=== PATIENT | male | born 1985 | race Two or more races ===

== ENCOUNTER 2019-01-03 09:27 | Inpatient (IN) | payer OTHER ==
[~2019-01-03] VITALS: Ht 167.6 cm; Wt 71.2 kg
[2019-01-03 09:40] VITALS: BP 125/85
--- NOTE | 2019-01-03 09:40 | NUR ---
ED Nurse Note: BROUGHT BY A CAREGIVER FROM [facility] DUE TO CONSTIPATION, NAUSEA, DIZZINESS SINCE 01/01/19. A/OX4. CLAMMY SKIN WITH HR OF 130s. DENIES SOB AND CP AT THIS TIME. BS 130 AT THE BEDSIDE. Addendum: 01/03/19 at 1001 by [email or web address] ED Nurse Note: BROUGHT BY A CAREGIVER FROM [facility] DUE TO CONSTIPATION, NAUSEA, DIZZINESS SINCE 01/01/19. A/OX4. CLAMMY SKIN WITH HR OF 130s. DENIES SOB AND CP AT THIS TIME. BS 130 AT THE BEDSIDE. PER PT, HE LOST APPETITE FOR PAST TWO MONTHS.
[2019-01-03] MEDS ORDERED: FLUOXETINE HCL20 M2 ORAL (09:56)
[2019-01-03] MEDS ORDERED: LATUDA40 MG PO (09:56)
[2019-01-03] MEDS ORDERED: DIPHENHYDRAMINE25 M1 ORAL (09:56)
--- NOTE | 2019-01-03 10:08 | NUR ---
ED Nurse Note: PT WAS NOT ABLE TO URINATE BY USING URINAL, HR WENT UP TO 150s. ERMED AWARE. HR WENT DOWN TO 130s AFTER PT RESTED ON GURENY. DENIES CP. PT SENT DOWN TO CT AFTER HR IS STABLIZED. RECEIVED VERBAL ORDER FROM YUNG TO INSERT BRITTON CATHETER AFTER PT COME BACK FROM CT.
[2019-01-03 10:20] LABS: BASOPHILS % (AUTO) 0.8 % (0.0-2.0); EOSINOPHILS % (AUTO) 0.1 % (0.0-3.0); HEMATOCRIT 47.2 % (42.0-52.0); HEMOGLOBIN 16.4 G/DL (14.2-18.0); LYMPHOCYTES % (AUTO) 18.7 % (20.0-45.0); MEAN CORPUSCULAR VOLUME 84 FL (80-99); MONOCYTES % (AUTO) 9.6 % (1.0-10.0); NEUTROPHILS % (AUTO) 70.7 % (45.0-75.0); PLATELET COUNT 242 K/UL (150-450); RED CELL DISTRIBUTION WIDTH 11.4 % (11.6-14.8); WHITE BLOOD COUNT 11.3 K/UL (4.8-10.8)
[2019-01-03 10:21] LABS: ANION GAP 22 mmol/L (5-15); BLOOD UREA NITROGEN 25 mg/dL (7-18); CALCIUM 10.2 MG/DL (8.5-10.1); CARBON DIOXIDE 24 MMOL/L (21-32); CHLORIDE 93 MMOL/L (98-107); CREATININE 2.3 MG/DL (0.55-1.30); SODIUM 139 MMOL/L (136-145)
[2019-01-03 10:29] LABS: INR 1.1 (0.9-1.1)
[2019-01-03] MEDS ORDERED: Metoclopramide 10mg/2ml Inj IVP ONE (10:30)
[2019-01-03] MEDS ORDERED: DiphenhydrAMINE 50mg/ml Inj IVP ONE (10:30)
[2019-01-03 10:36] LABS: ALANINE AMINOTRANSFERASE 20 U/L (12-78); ALBUMIN 4.8 G/DL (3.4-5.0); ALBUMIN/GLOBULIN RATIO 1.1 (1.0-2.7); ALKALINE PHOSPHATASE 112 U/L (46-116); ASPARTATE AMINO TRANSFERASE 28 U/L (15-37); BILIRUBIN,TOTAL 1.1 MG/DL (0.2-1.0); CKMB 1.1 NG/ML (0.0-3.6); CREATINE KINASE 292 U/L (26-308)
[2019-01-03 10:44] LABS: BILIRUBIN,DIRECT 0.2 MG/DL (0.0-0.3)
--- NOTE | 2019-01-03 11:04 | Diagnostic Imaging Report ---
INDICATION: 33-year-old male pain TECHNIQUE: Multiple, contiguous axial cuts of the abdomen and pelvis are obtained from the lung bases to the ischial tuberosities. Sagittal and coronal reformatted images are available. One or more of the following dose reduction techniques were used: automated exposure control, adjustment of the mA and/or kV according to patient size, use of iterative reconstruction technique. COMPARISON: None FINDINGS: The lung bases are clear. The liver and spleen are normal in size and free of mass lesions. Status post cholecystectomy. The bile ducts and pancreas are normal. The adrenal gland are unremarkable. The kidneys are normal in size and contour. No stones, lesions or hydronephrosis. Small hiatal hernia. The appendix is unremarkable, as is the rest of the GI tract. Aorta is normal caliber. No adenopathy or extraluminal air. The osseous structures are normal. The right testicle may be within the right inguinal canal. IMPRESSION: 1. Status post cholecystectomy. 2. Right testicle can be within right inguinal canal. 3. Small hiatal hernia. CTDI: 12.77 mGy DLP: 668.63 mGycm
--- NOTE | 2019-01-03 11:07 | NUR ---
ED Nurse Note: BRITTON 14FR INSERTED PER VERBAL ORDER OF ERMD. URINE COLLECTED AND SENT DOWN TO THE LAB.
--- NOTE | 2019-01-03 11:09 | Diagnostic Imaging Report ---
INDICATION: Chest pain COMPARISON: None FINDINGS: Single frontal view demonstrates a normal cardiomediastinal silhouette. The lungs are clear. No pleural effusions. Mild levoscoliosis of the midthoracic spine. The visualized osseous structures are within normal limits. IMPRESSION: No acute cardiopulmonary disease.
[2019-01-03 11:21] LABS: APPEARANCE,URINE CLOUDY; BILIRUBIN, URINE 2+ (NEGATIVE); COLOR,URINE BROWN; GLUCOSE, URINE (UA) NEGATIVE (NEGATIVE); KETONES,URINE 4+ (NEGATIVE); LEUKOCYTE ESTERASE ,URINE 2+ (NEGATIVE); NITRITE,URINE NEGATIVE (NEGATIVE); PH,URINE 6 (4.5-8.0); PROTEIN,URINE 3+ (NEGATIVE); UROBILINOGEN,URINE 8 MG/DL (0.0-1.0)
--- NOTE | 2019-01-03 12:09 | NUR ---
ED Nurse Note: ROSA MONIQUE, STAFF FROM [facility], KIRA MONIQUE, CROP PRODUCTION ADVISOR FROM [facility],
[2019-01-03 12:12] VITALS: BP_SYST 123; BP_SYST 125; BP_DIAS 82; BP_DIAS 85
--- NOTE | 2019-01-03 12:21 | NUR ---
HAND-OFF: Report given to BRAD Medrano. No s/s of distress.
--- NOTE | 2019-01-03 12:27 | Emergency Room Report ---
History of Present Illness General Chief Complaint: General Complaint Source: Patient, Medical Record, Caregiver Present Illness HPI Patient [facility] with reports of constipation patient had reported diffuse abdominal pain nausea Patient presented fairly tachycardic Denies any chest pain or shortness of breath Laboratory Mechanic Helper reports the patient does have severe depression Denies any neck pain or photophobia denies any fevers denies any trauma After repeat evaluation patient now reports that he did have a bowel movement today Allergies: Coded Allergies: No Known Allergies (Unverified , 01/03/19) Patient History Past Medical History: see triage record Pertinent Family History: none Reviewed Nursing Documentation: PMH: Agreed; PSxH: Agreed Nursing Documentation-PMH Past Medical History: No History, Except For Hx Hypertension: Yes Hx Diabetes: Yes Review of Systems All Other Systems: negative except mentioned in HPI Physical Exam Vital Signs Date Time Temp Pulse Resp B/P (MAP) Pulse Ox O2 Delivery O2 Flow Rate FiO2 01/03/19 09:35 99.0 144 24 133/89 97 Room Air Sp02 EP Interpretation: reviewed, normal General Appearance: mild distress - Patient appears somewhat jaundice and dehydrated uncomfortable Head: normocephalic, atraumatic Eyes: bilateral eye PERRL, bilateral eye EOMI ENT: dry mucus membranes Neck: supple Respiratory: lungs clear, no retraction, no accessory muscle use Cardiovascular #1: tachycardia Gastrointestinal: non tender, soft Musculoskeletal: normal inspection Neurologic: alert, oriented x3, responsive Skin: other - poor turgor Lymphatic: no adenopathy Medical Decision Making Diagnostic Impression: Primary Impression: Renal insufficiency Additional Impression: Dehydration ER Course Given the patient's initial presentation in acute discomfort consideration for bowel perforation, appendicitis kidney injury is high patient taken emergently to CT imaging blood work reveals elevated BUN/creatinine Patient's CAT scan was done without contrast No obvious acute pathology seen on the CAT scan Patient's blood work again reveals insufficiency further hydration provided Patient requires inpatient care Labs Test 01/03/19 09:10 01/03/19 09:50 Urine Color Brown Urine Appearance Cloudy Urine pH 6 (4.5-8.0) Urine Specific [place] 1.025 (1.005-1.035) Urine Protein 3+ (NEGATIVE) Urine Glucose (UA) Negative (NEGATIVE) Urine Ketones 4+ (NEGATIVE) Urine Blood 4+ (NEGATIVE) Urine Nitrite Negative (NEGATIVE) Urine Bilirubin 2+ (NEGATIVE) Urine Ictotest Negative (NEGATIVE) Urine Urobilinogen 8 MG/DL (0.0-1.0) Urine Leukocyte Esterase 2+ (NEGATIVE) Urine RBC Tntc /HPF (0 - 0) Urine WBC Tntc /HPF (0 - 0) Urine Squamous Epithelial Cells Occasional /LPF Urine Amorphous Sediment Few /LPF (NONE) Urine Bacteria Moderate /HPF (NONE) Urine Hyaline Casts 5-10 /LPF (NONE) Urine Fine Granular Casts 5-10 /LPF (NONE) Urine Mucus Moderate /LPF (NONE/OCC) White Blood Count 11.3 K/UL (4.8-10.8) Red Blood Count 5.60 M/UL (4.70-6.10) Hemoglobin 16.4 G/DL (14.2-18.0) Hematocrit 47.2 % (42.0-52.0) Mean Corpuscular Volume 84 FL (80-99) Mean Corpuscular Hemoglobin 29.3 PG (27.0-31.0) Mean Corpuscular Hemoglobin Concent 34.8 G/DL (32.0-36.0) Red Cell Distribution Width 11.4 % (11.6-14.8) Platelet Count 242 K/UL (150-450) Mean Platelet Volume 9.6 FL (6.5-10.1) Neutrophils (%) (Auto) 70.7 % (45.0-75.0) Lymphocytes (%) (Auto) 18.7 % (20.0-45.0) Monocytes (%) (Auto) 9.6 % (1.0-10.0) Eosinophils (%) (Auto) 0.1 % (0.0-3.0) Basophils (%) (Auto) 0.8 % (0.0-2.0) Prothrombin Time 11.1 SEC (9.30-11.50) Prothromb Time International Ratio 1.1 (0.9-1.1) Activated Partial Thromboplast Time 23 SEC (23-33) Sodium Level 139 MMOL/L (136-145) Potassium Level 3.0 MMOL/L (3.5-5.1) Chloride Level 93 MMOL/L (98-107) Carbon Dioxide Level 24 MMOL/L (21-32) Anion Gap 22 mmol/L (5-15) Blood Urea Nitrogen 25 mg/dL (7-18) Creatinine 2.3 MG/DL (0.55-1.30) Estimat Glomerular Filtration Rate 33.3 mL/min (>60) Glucose Level 130 MG/DL (74-106) Calcium Level 10.2 MG/DL (8.5-10.1) Total Bilirubin 1.1 MG/DL (0.2-1.0) Direct Bilirubin 0.2 MG/DL (0.0-0.3) Aspartate Amino Transf (AST/SGOT) 28 U/L (15-37) Alanine Aminotransferase (ALT/SGPT) 20 U/L (12-78) Alkaline Phosphatase 112 U/L (46-116) Total Creatine Kinase 292 U/L (26-308) Creatine Kinase MB 1.1 NG/ML (0.0-3.6) Creatine Kinase MB Relative Index 0.3 Troponin I 0.000 ng/mL (0.000-0.056) Total Protein 9.3 G/DL (6.4-8.2) Albumin 4.8 G/DL (3.4-5.0) Globulin 4.5 g/dL Albumin/Globulin Ratio 1.1 (1.0-2.7) Rhythm Strip Diag. Results EP Interpretation: yes Rate: 110 Rhythm: no PVC's, no ectopy, other - Sinus tach Chest X-Ray Diagnostic Results Chest X-Ray Diagnostic Results : Chest X-Ray Ordered: Yes # of Views/Limited/Complete: 1 View Indication: Chest Pain EP Interpretation: Yes Interpretation: no consolidation, no effusion, no pneumothorax Impression: No acute disease Electronically Signed by: Janett Flower DO CT/MRI/US Diagnostic Results CT/MRI/US Diagnostic Results : Impression CT abdomen pelvis:IMPRESSION: 1. Status post cholecystectomy. 2. Right testicle can be within right inguinal canal. 3. Small hiatal hernia. Last Vital Signs Date Time Temp Pulse Resp B/P (MAP) Pulse Ox O2 Delivery O2 Flow Rate FiO2 01/03/19 12:12 98 18 123/82 97 Room Air 01/03/19 09:40 99.0 Status: improved Disposition: ADMITTED INPATIENT Condition: Serious Referrals: [facility],REFER (PCP) Janett Flower DO Jan 03, 2019 12:27
[2019-01-03] MEDS ORDERED: cefTRIAXone 1 GM in NS 55 ML IVPB ONE (12:30)
[2019-01-03 13:22] VITALS: BP 115/69
--- NOTE | 2019-01-03 13:25 | NUR ---
NURSE NOTES: Patient arrived to floor at 1321 via gurney, accompanied by Mitchell SALINAS. Lott catheter in place with clear, yellow urine noted. Belongings checked at bedside with 2 RN's. Patient is awake alert and oriented x4, no acute distress noted. Flat affect noted. Patient reporting abdominal pain and nausea has subsided, patient was medicated in ER. Patient oriented to room and unit policies. VS assessed stable. Side rails upx3, bed low and locked, call light in reach. Will continue to monitor.
--- NOTE | 2019-01-03 13:37 | NUR ---
TRANSFER TO FLOOR: Patient transferred to [facility] as ordered, per Dr. Ferguson. Report given to BRAD Monaco.
--- NOTE | 2019-01-03 13:55 | NUR ---
NURSE NOTES: Dr. Ferguson is at the bedside assessing patient. MD aware of patient's lab results and informed MD of patient's medical history and home medications.
--- NOTE | 2019-01-03 14:13 | History & Physical ---
History and Physical History & Physicial HP dictated # [id number] Ugo Ferguson MD Jan 03, 2019 14:13
[2019-01-03 16:00] VITALS: BP 110/65
[2019-01-03] MEDS: Piperacillin/Tazobactam 3.375 GM in D5W 110 ML IVPB SCH ×2 (16:14→22:37)
[2019-01-03] MEDS: D5W w/KCl 20mEq 1,000 ML IV SCH (16:15)
[2019-01-03] MEDS: Ziprasidone 20mg cap ORAL SCH (17:39)
--- NOTE | 2019-01-03 19:08 | NUR ---
HAND-OFF: Report given to Yvonne SALINAS. Patient is in stable condition.
--- NOTE | 2019-01-03 19:30 | NUR ---
NURSE NOTES: Received report from BRAD Monaco. Patient sleeping, easily awakened. Alert and oriented x4. Denies pain. Bed in low position, locked, side rails up, call light within reach. IVF running well in RAC, site intact. Lott catheter patent, draining well. Encouraged to drink fluids. Denies any pain at this time. Will continue to monitor.
[2019-01-03 20:00] VITALS: BP 113/67
[2019-01-03] MEDS: Tamsulosin 0.4mg cap ORAL SCH (20:31)
[2019-01-03] MEDS ORDERED: Miralax 17gm pkt ORAL PRN (21:00)
--- NOTE | 2019-01-03 22:45 | History and Physical Report ---
DATE OF ADMISSION: 01/03/2019 CHIEF COMPLAINT: Nausea and vomiting. HISTORY OF PRESENT ILLNESS: This is a 33-year-old male, who lives in a [facility]. The patient has some history of psychiatric problem and severe depression. The patient started vomiting he states from . He is somewhat of a poor historian. He was seen in the emergency room and was found to have acute renal failure and also hypokalemia. He was also having urinary retention. A Lott catheter was placed. The patient was also diagnosed with urinary tract infection. The patient was admitted for further care. PAST MEDICAL HISTORY: The patient denies history of diabetes or hypertension. He denies any history of renal failure in the past. Apparently, the patient is status post cholecystectomy based on the CT of abdomen and pelvis that was done here in the ER and also they reported the right testicle came in within right inguinal canal. MEDICATIONS: Reviewed in EMR. SOCIAL HISTORY: No history of smoking or alcohol abuse. ALLERGIES: No known drug allergies. REVIEW OF SYSTEMS: As above. PHYSICAL EXAMINATION: GENERAL: The patient is a thin male, in no acute distress. VITAL SIGNS: Blood pressure is 129/80 with pulse of 85, temperature 98.2, and respiratory rate is 18. HEENT: Avis conjunctivae. Anicteric sclerae. NECK: Supple. LUNGS: Clear to auscultation. HEART: S1, S2 without murmurs or rubs. ABDOMEN: Soft, nontender. EXTREMITIES: No cyanosis or edema. LABORATORY FINDINGS: The CBC shows WBC of 11,300, hematocrit is 47.2, hemoglobin 16.4, and platelet is 242,000. Chemistry panel shows serum sodium 139, potassium 3, chloride 93, CO2 24, BUN is 25, creatinine 2.3, glucose is 130, calcium is 10.2, albumin is 4.8. The UA shows 3+ protein, too numerous to count rbc's, and too numerous to count wbc's per high-powered field. ASSESSMENT: This is a 33-year-old male, who was admitted with nausea and vomiting. He does have urinary tract infection, question is if UTI is causing his vomiting, however, a primary GI disease cannot be ruled out such as acute gastritis or gastroenteritis, peptic ulcer disease, etc. The patient has also acute renal failure, which is likely from prerenal azotemia. Hypokalemia could be from vomiting causing some metabolic alkalosis. PLAN: The patient will be hydrated with IV fluid with addition of potassium. He will be on IV antibiotics. The patient will be on liquid diet. Antiemetics will be prescribed. The patient will be on Flomax for his urinary retention and has a Lott catheter and we will keep it for now. Labs will be followed and further adjustment will be made in the patient's regimen. Ugo Ferguson M.D. DR: YEMI JOB#: [id number] CC:
[2019-01-04] VITALS: BP 94/58
[2019-01-04] MEDS: D5W w/KCl 20mEq 1,000 ML IV SCH ×3 (01:52→18:17)
[2019-01-04 04:00] VITALS: BP 97/55
[2019-01-04] MEDS: Piperacillin/Tazobactam 3.375 GM in D5W 110 ML IVPB SCH (05:30)
--- NOTE | 2019-01-04 05:30 | NUR ---
NURSE NOTES: Lott catheter output 60cc throughout the night. No distention noted upon palpation. Patient has been encouraged to drink fluids throughout the night. Patient assisted at this time out of bed to bathroom, had BM. Charge nurse aware of decreased urine output. No distention noted by charge nurse. Scanned bladder: 371cc. Meatal care given, with charge nurse assistance, catheter placement confirmed by slightly advancing cath after cleaning with iodine and applying lubrication. Patient tolerated well. Denies any pain, no distress noted. VSS.
--- NOTE | 2019-01-04 06:52 | NUR ---
NURSE NOTES: Placed phone call to attending physician regarding low urine output. Left message.
--- NOTE | 2019-01-04 07:30 | NUR ---
HAND-OFF: Report given to BRAD Matthew. Awaiting MD phone call. Patient in stable condition. Denies any pain.
[2019-01-04 07:57] LABS: BASOPHILS % (AUTO) 0.7 % (0.0-2.0); EOSINOPHILS % (AUTO) 1.2 % (0.0-3.0); HEMATOCRIT 38.2 % (42.0-52.0); HEMOGLOBIN 13.2 G/DL (14.2-18.0); LYMPHOCYTES % (AUTO) 16.6 % (20.0-45.0); MEAN CORPUSCULAR VOLUME 84 FL (80-99); MONOCYTES % (AUTO) 7.1 % (1.0-10.0); NEUTROPHILS % (AUTO) 74.4 % (45.0-75.0); PLATELET COUNT 149 K/UL (150-450); RED BLOOD COUNT 4.56 M/UL (4.70-6.10); RED CELL DISTRIBUTION WIDTH 11.2 % (11.6-14.8); WHITE BLOOD COUNT 7.7 K/UL (4.8-10.8)
[2019-01-04 08:00] VITALS: BP 118/66
[2019-01-04] MEDS: Ziprasidone 20mg cap ORAL SCH ×2 (08:38→18:01)
[2019-01-04 09:04] LABS: ALANINE AMINOTRANSFERASE 19 U/L (12-78); ALBUMIN 3.4 G/DL (3.4-5.0); ALKALINE PHOSPHATASE 81 U/L (46-116); ANION GAP 8 mmol/L (5-15); ASPARTATE AMINO TRANSFERASE 50 U/L (15-37); BILIRUBIN,TOTAL 1.3 MG/DL (0.2-1.0); BLOOD UREA NITROGEN 13 mg/dL (7-18); CALCIUM 8.7 MG/DL (8.5-10.1); CARBON DIOXIDE 31 MMOL/L (21-32); CHLORIDE 92 MMOL/L (98-107); CREATININE 1.2 MG/DL (0.55-1.30); SODIUM 132 MMOL/L (136-145)
[2019-01-04 09:05] LABS: POTASSIUM 2.2 MMOL/L (3.5-5.1)
[2019-01-04 09:08] LABS: BILIRUBIN,DIRECT 0.3 MG/DL (0.0-0.3)
--- NOTE | 2019-01-04 10:59 | General Progress Note ---
Assessment/Plan Problem List: (1) ARF (acute renal failure) ICD Codes: N17.9 - Acute kidney failure, unspecified SNOMED: 58240847 (2) UTI (urinary tract infection) ICD Codes: N39.0 - Urinary tract infection, site not specified SNOMED: 84044784 (3) Vomiting ICD Codes: R11.10 - Vomiting, unspecified SNOMED: 688928861 Assessment/Plan abxs replete K Discussed with RN follow labs pineda is out Subjective Allergies: Coded Allergies: No Known Allergies (Unverified , 01/03/19) Subjective feels ok Objective Last 24 Hour Vital Signs Date Time Temp Pulse Resp B/P (MAP) Pulse Ox O2 Delivery O2 Flow Rate FiO2 01/04/19 08:00 98.1 71 20 118/66 (83) 97 01/04/19 04:00 97.5 57 20 97/55 (69) 97 01/04/19 00:00 97.3 61 18 94/58 (70) 97 01/03/19 21:00 Room Air 01/03/19 20:00 97.8 67 16 113/67 (82) 97 01/03/19 16:00 98.2 18 110/65 (80) 97 01/03/19 13:58 Room Air 01/03/19 13:35 98.2 85 18 129/80 97 Room Air 01/03/19 13:22 97.7 86 18 115/69 (84) 98 01/03/19 12:12 98 18 123/82 97 Room Air Intake and Output 01/03/19 01/04/19 19:00 07:00 Intake Total 1195.0 ml 1940 ml Output Total 150 ml 60 ml Balance 1045.0 ml 1880 ml Intake Oral 840 ml 840 ml IV Total 355.0 ml 1100 ml Output Urine Total 150 ml 60 ml # Voids 1 # Bowel Movements 1 Laboratory Tests 01/03/19 12:30: Urine Opiates Screen Negative, Urine Barbiturates Screen Negative, Phencyclidine (PCP) Screen Negative, Urine Amphetamines Screen Negative, Urine Benzodiazepines Screen Negative, Urine Cocaine Screen Negative, Urine Marijuana (THC) Screen Negative 01/04/19 07:30: White Blood Count 7.7, Red Blood Count 4.56L, Hemoglobin 13.2L, Hematocrit 38.2L , Mean Corpuscular Volume 84, Mean Corpuscular Hemoglobin 28.9, Mean Corpuscular Hemoglobin Concent 34.5, Red Cell Distribution Width 11.2L, Platelet Count 149L, Mean Platelet Volume 10.1, Neutrophils (%) (Auto) 74.4, Lymphocytes (%) (Auto) 16.6L, Monocytes (%) (Auto) 7.1, Eosinophils (%) (Auto) 1.2, Basophils (%) (Auto) 0.7, Sodium Level 132L, Potassium Level 2.2*L, Chloride Level 92L, Carbon Dioxide Level 31, Anion Gap 8, Blood Urea Nitrogen 13 , Creatinine 1.2, Estimat Glomerular Filtration Rate > 60, Glucose Level 131H, Hemoglobin A1c 5.3, Calcium Level 8.7, Magnesium Level 2.4, Total Bilirubin 1.3H , Direct Bilirubin 0.3, Aspartate Amino Transf (AST/SGOT) 50H, Alanine Aminotransferase (ALT/SGPT) 19, Alkaline Phosphatase 81, Total Protein 6.9, Albumin 3.4, Globulin 3.5, Albumin/Globulin Ratio 1.0, Prostate Specific Antigen 2.83 Height (Feet): 5 Height (Inches): 6.00 Weight (Pounds): 157 Cardiovascular: normal rate Respiratory/Chest: lungs clear Ugo Ferguson MD Jan 04, 2019 10:59
--- NOTE | 2019-01-04 11:15 | Physician Query ---
--------- THIS DOCUMENT IS A PERMANENT PART OF THE MEDICAL RECORD --------- PLEASE COMPLETE THE DOCUMENT BEFORE SIGNING Dear Dr. Henao, Zander Date: _01/04/2019 Sensitizer/CDS Name: Melissa Grajeda Sensitizer / CDS Phone #__[phone] Exercise your independent professional judgment when responding to query. Question asked do not imply a particular answer is desired/expected Clinical Documentation States: "Renal Failure" documented in Clinical Findings Show: Creatinine _2.3/1.2 BUN ____22 Cr/BUN GFR___33.3 Urinalysis Grandular 10-15____protein 3+ ____ Please Clarify the type of renal failure below: Etiology [] ARF w/ Tubular Necrosis [] ARF w/ Cortical Necrosis [] ARF w/ Medullary Necrosis [x] Acute Renal Failure (unspecified) [] Other: If Chronic, please specify the stage: [] CKD Stage 1 [] CKD Stage 2 [] CKD Stage 3 [] CKD Stage 4 [] CKD Stage 5 [] ESRD [] Not applicable Condition Present on Admission: [] Yes [] No []Clinically Undeterminable Please also document in your Progress Notes and/or Discharge Summary and indicate if the condition was present on admission. MTDD
[2019-01-04 12:00] VITALS: BP 113/73
--- NOTE | 2019-01-04 12:00 | NUR ---
NURSE NOTES: patient called nurse, telling her Lott came out. Nurse checked and baloon was still inflated, out of pt. Very light bleeding observed at urinary meatus. Patient told nurse he'd prefer not have Lott if possible. Told dr. Ferguson, who d/c Lott and just check I/O. Also, pt refused IVPB KCl, claiming it lemus. Dr Ferguson converted to PO.
[2019-01-04] MEDS ORDERED: ABILIFY20 MG ORAL (12:25)
[2019-01-04 16:00] VITALS: BP 115/74
[2019-01-04] MEDS ORDERED: NS 500ML ONE (16:23)
[2019-01-04] MEDS ORDERED: Tubing IV Secondary IV ONE (16:23)
[2019-01-04] MEDS: cefTRIAXone 1 GM in D5W 55 ML IVPB SCH (18:01)
--- NOTE | 2019-01-04 19:31 | NUR ---
CASE MANAGEMENT: INITIAL REVIEW 33 YO M PRESENTED TO OUR ED FROM [facility] CC: INABILITY TO WALK. PMHx: HTN. DM. SI:RENAL INSUFFICIENCY. DEHYDRATION. T 99 HR 144 RR 24 B/P 133/89 SATS 97% ON RA WBC 11.3 K 3 CL 93 BUN 25 CR 2.3 GLU 130 CA 10.2 TBILI 1.1 IS: NS BOLUS X1 ZOFRAN IV X1 REGLAN IV X1 BENADRYL IV X1 PATIENT ADMITTED TO MED/SURG 01/03/2019 @ 1200 DCP: PATIENT TO BE DISCHARGED TO HOME ONCE MEDICALLY CLEARED. PLAN OF CARE: IV HYDRATION IV ANTIBx
--- NOTE | 2019-01-04 19:34 | NUR ---
HAND-OFF: Report given to BRAD Leon.
--- NOTE | 2019-01-04 19:35 | NUR ---
NURSE NOTES: Received report & pt from BRAD Matthew. Pt lying in bed, a&ox4, in room air. No s/s of acute distress & no c/o pain at this time. IV site intact with IVF running as ordered. Bed in lowest position, call light within reach. Will continue to monitor.
[2019-01-04 20:00] VITALS: BP 128/85
--- NOTE | 2019-01-04 20:00 | NUR ---
NURSE NOTES: Pt voided 350ml yellow urine output without difficulty.
[2019-01-04] MEDS: Tamsulosin 0.4mg cap ORAL SCH (20:23)
--- NOTE | 2019-01-04 20:23 | NUR ---
NURSE NOTES: Pt in bathroom, complaining of nausea & trying to vomit. Zofran 4mg IVP PRN given. Will continue to monitor.
--- NOTE | 2019-01-04 22:34 | Consultation ---
History of Present Illness General Chief Complaint: General Complaint Present Illness HPI 33-year-old male, history of anxiety and depression. The patient started vomiting he states from . the pt is anxious and stated that he just threw up blood. the pt is having attention seeking behavior no si/hi Allergies: Coded Allergies: No Known Allergies (Unverified , 01/03/19) Medication History Scheduled Aripiprazole* (Abilify*), 20 MG ORAL QHS, (Reported) Fluoxetine Hcl* (Fluoxetine Hcl*), 20 MG ORAL DAILY, (Reported) Lurasidone Hcl (Latuda), 40 MG PO HS, (Reported) Scheduled PRN Diphenhydramine Hcl* (Diphenhydramine Hcl*), 50 MG ORAL HS PRN for Itching, ( Reported) Patient History History Provided By: Patient, Medical Record, PMD Healthcare decision maker Selina Lloyd (patient's mother) Resuscitation status Full Code Advanced Directive on File Review of Systems Psychiatric: Reports: prior hx, anxiety, depressed feelings, emotional problems Physical Exam General Appearance: WD/WN, no apparent distress, alert Neurologic: oriented x 3, responsive, depressed affect Last 24 Hour Vital Signs Date Time Temp Pulse Resp B/P (MAP) Pulse Ox O2 Delivery O2 Flow Rate FiO2 01/04/19 21:00 Room Air 01/04/19 20:00 97.8 91 20 128/85 (99) 96 01/04/19 16:00 97.7 77 20 115/74 (88) 97 01/04/19 12:00 97.2 71 19 113/73 (86) 97 01/04/19 09:00 Room Air 01/04/19 08:00 98.1 71 20 118/66 (83) 97 01/04/19 04:00 97.5 57 20 97/55 (69) 97 01/04/19 00:00 97.3 61 18 94/58 (70) 97 Intake and Output 01/03/19 01/04/19 18:59 06:59 Intake Total 1095.0 ml 2040 ml Output Total 150 ml 60 ml Balance 945.0 ml 1980 ml Intake Oral 840 ml 840 ml IV Total 255.0 ml 1200 ml Output Urine Total 150 ml 60 ml # Voids 1 # Bowel Movements 1 Laboratory Tests Test 01/04/19 07:30 White Blood Count 7.7 K/UL (4.8-10.8) Red Blood Count 4.56 M/UL (4.70-6.10) L Hemoglobin 13.2 G/DL (14.2-18.0) L Hematocrit 38.2 % (42.0-52.0) L Mean Corpuscular Volume 84 FL (80-99) Mean Corpuscular Hemoglobin 28.9 PG (27.0-31.0) Mean Corpuscular Hemoglobin Concent 34.5 G/DL (32.0-36.0) Red Cell Distribution Width 11.2 % (11.6-14.8) L Platelet Count 149 K/UL (150-450) L Mean Platelet Volume 10.1 FL (6.5-10.1) Neutrophils (%) (Auto) 74.4 % (45.0-75.0) Lymphocytes (%) (Auto) 16.6 % (20.0-45.0) L Monocytes (%) (Auto) 7.1 % (1.0-10.0) Eosinophils (%) (Auto) 1.2 % (0.0-3.0) Basophils (%) (Auto) 0.7 % (0.0-2.0) Sodium Level 132 MMOL/L (136-145) L Potassium Level 2.2 MMOL/L (3.5-5.1) *L Chloride Level 92 MMOL/L (98-107) L Carbon Dioxide Level 31 MMOL/L (21-32) Anion Gap 8 mmol/L (5-15) Blood Urea Nitrogen 13 mg/dL (7-18) Creatinine 1.2 MG/DL (0.55-1.30) Estimat Glomerular Filtration Rate > 60 mL/min (>60) Glucose Level 131 MG/DL (74-106) H Hemoglobin A1c 5.3 % (4.3-6.0) Calcium Level 8.7 MG/DL (8.5-10.1) Magnesium Level 2.4 MG/DL (1.8-2.4) Total Bilirubin 1.3 MG/DL (0.2-1.0) H Direct Bilirubin 0.3 MG/DL (0.0-0.3) Aspartate Amino Transf (AST/SGOT) 50 U/L (15-37) H Alanine Aminotransferase (ALT/SGPT) 19 U/L (12-78) Alkaline Phosphatase 81 U/L (46-116) Total Protein 6.9 G/DL (6.4-8.2) Albumin 3.4 G/DL (3.4-5.0) Globulin 3.5 g/dL Albumin/Globulin Ratio 1.0 (1.0-2.7) Prostate Specific Antigen 2.83 ng/mL (0.13-4.0) Height (Feet): 5 Height (Inches): 6.00 Weight (Pounds): 157 Medications Current Medications Medications (Trade) Dose Ordered Sig/Adina Route PRN Reason Start Time Stop Time Status Last Admin Dose Admin Acetaminophen (Tylenol) 650 mg Q4H PRN ORAL Mild Pain (Pain Scale 1-3) 01/03/19 14:26 02/02/19 14:25 Ceftriaxone Sodium 1 gm/ Dextrose 55 ml @ 110 mls/hr Q24H IVPB 01/04/19 16:00 01/11/19 15:59 01/04/19 18:01 Dextrose (Dextrose 50%) 25 ml Q30M PRN IV Hypoglycemia 01/03/19 14:27 02/02/19 14:26 Dextrose (Dextrose 50%) 50 ml Q30M PRN IV Hypoglycemia 01/03/19 14:27 02/02/19 14:26 Dextrose/ Electrolytes 1,000 ml @ 100 mls/hr Q10H IV 01/03/19 16:00 02/02/19 15:59 01/04/19 18:17 Fluoxetine HCl (PROzac) 40 mg DAILY ORAL 01/05/19 09:00 02/04/19 08:59 Ondansetron HCl (Zofran) 4 mg Q4H PRN IVP Nausea & Vomiting 01/03/19 14:27 02/02/19 14:26 01/04/19 20:23 Polyethylene Glycol (Miralax) 17 gm HSPRN PRN ORAL Constipation 01/03/19 21:00 02/02/19 20:59 Potassium Chloride (K-Dur) 40 meq Q4H ORAL 01/04/19 20:00 01/05/19 04:01 01/04/19 20:23 Tamsulosin HCl (Flomax) 0.4 mg BEDTIME ORAL 01/03/19 21:00 02/02/19 20:59 01/04/19 20:23 Temazepam (Restoril) 15 mg HSPRN PRN ORAL Insomnia 01/03/19 21:00 01/10/19 20:59 Ziprasidone (Geodon) 40 mg BID ORAL 01/03/19 18:00 02/02/19 17:59 01/04/19 18:01 Assessment/Plan Problem List: (1) MDD (major depressive disorder) ICD Codes: F32.9 - Major depressive disorder, single episode, unspecified SNOMED: 850113810 (2) Anxiety disorder ICD Codes: F41.9 - Anxiety disorder, unspecified SNOMED: 367900596 Status: stable Assessment/Plan prozac 40mg po q daily abilify provided so/Flor Bella MD Jan 04, 2019 22:34
[2019-01-05] VITALS: BP 95/61
--- NOTE | 2019-01-05 00:45 | Consultation ---
DATE OF CONSULTATION: 01/04/2019 INFECTIOUS DISEASES CONSULTATION CONSULTING PHYSICIAN: Garo Ferguson M.D. PRIMARY ATTENDING PHYSICIAN: Ugo Ferguson M.D. REASON FOR CONSULTATION: Pyuria and UTI. HISTORY OF PRESENT ILLNESS: This is a 33-year-old male who lives in [facility] facility, was admitted yesterday because of abdominal pain, nausea, difficulty of passing urine, was found to have borderline leukocytosis and acute renal failure. PAST MEDICAL HISTORY: Significant for psychiatric problem and hypertension. ALLERGIES: No known drug allergies. MEDICATIONS: Getting potassium chloride, Flomax, MiraLAX, temazepam, , Zosyn, and Tylenol. SOCIAL HISTORY: Single. Denies alcohol, drug abuse, or smoking. REVIEW OF SYSTEMS: Feels better today. He has no complaints. Denies fever, chills, nausea, vomiting, or diarrhea. He states he passed urine today. PHYSICAL EXAMINATION: VITAL SIGNS: Temperature 98.1 checked in the hospital, and blood pressure 118/66. GENERAL APPEARANCE: He is in no acute distress. Seems now has normal weight. HEAD AND NECK: Hills conjunctiva. HEART: Normal rate. LUNGS: Clear. ABDOMEN: Soft and nontender. EXTREMITIES: No edema. He has bilateral compression devices to lower extremities. NEUROLOGIC: He is awake, alert, and communicative with no focal signs. LABORATORY AND DIAGNOSTIC DATA: WBC today is 7.7, hemoglobin 13.2, hematocrit 38.2, and platelets is 149,000. Sodium 132, potassium 2.2, chloride 92, bicarb 31, BUN 13, creatinine 1.2 and creatinine at the time of admission was 2.3. Total bilirubin is 1.3 and AST is 50. Chest x-ray, no acute cardiopulmonary disease. CT scan of the abdomen and pelvis showed status post cholecystectomy. Right testis in the right inguinal canal, a small hiatal hernia. Urine culture so far is negative. IMPRESSION: 1. Urinary retention. 2. Mild pyuria. 3. Acute renal failure. 4. Hypertension. 5. Psychiatric problem. 6. Hypokalemia. RECOMMENDATIONS: Discontinue Zosyn. Start on Rocephin. If the urine culture stay negative, we will stop antibiotics soon. At the end of my exam, I thank Dr. Ugo Ferguson for involving me in the care of this patient. Garo Ferguson M.D. DR: ZHANNA JOB#: [id number] CC: ROBB
[2019-01-05 04:00] VITALS: BP 112/63
[2019-01-05 06:34] LABS: HEMATOCRIT 34.8 % (42.0-52.0); HEMOGLOBIN 12.1 G/DL (14.2-18.0); LYMPHOCYTES % (AUTO) 32.7 % (20.0-45.0); MEAN CORPUSCULAR VOLUME 84 FL (80-99); MONOCYTES % (AUTO) 9.1 % (1.0-10.0); NEUTROPHILS % (AUTO) 56.3 % (45.0-75.0); PLATELET COUNT 146 K/UL (150-450); RED BLOOD COUNT 4.14 M/UL (4.70-6.10); RED CELL DISTRIBUTION WIDTH 11.5 % (11.6-14.8); WHITE BLOOD COUNT 5.7 K/UL (4.8-10.8)
[2019-01-05 06:43] LABS: ANION GAP 6 mmol/L (5-15); BLOOD UREA NITROGEN 7 mg/dL (7-18); CALCIUM 8.7 MG/DL (8.5-10.1); CARBON DIOXIDE 33 MMOL/L (21-32); CHLORIDE 100 MMOL/L (98-107); CREATININE 0.9 MG/DL (0.55-1.30); POTASSIUM 3.1 MMOL/L (3.5-5.1); SODIUM 139 MMOL/L (136-145)
--- NOTE | 2019-01-05 07:29 | NUR ---
HAND-OFF: Report given to Ramez Luciano RN. Pt in stable condition. No n/v noted since Zofran was given.
--- NOTE | 2019-01-05 07:30 | NUR ---
NURSE NOTES: Patient lying in bed awake. No complain or pain or distress at this time. Skin intact and dry. IV dressing intact and dry. Bed lowest position. Call light within reach. Will continue to monitor.
[2019-01-05 08:00] VITALS: BP 118/67
[2019-01-05] MEDS: Ziprasidone 20mg cap ORAL SCH ×2 (08:14→17:12)
[2019-01-05] MEDS: D5W w/KCl 20mEq 1,000 ML IV SCH ×2 (08:14→17:12)
--- NOTE | 2019-01-05 08:57 | NUR ---
CASE MANAGEMENT:REVIEW 01/05/19 SI: ACUTE RENAL FAILURE UTI. PSYCH PROBLEM 97.2 53 18 112/63 100% ON RA K-3.1 IS: PROZAC PO QD IV ROCEPHIN Q24 IVF@100/HR : MED/SURG STATUS 3 [facility]
[2019-01-05 12:00] VITALS: BP 99/54
--- NOTE | 2019-01-05 12:18 | NUR ---
*-* INSURANCE *-* ALL CLINICALS AND REVIEWS HAVE BEEN FAXED TO: SUHAS QUINN: [place] P:[phone] F:[phone]
--- NOTE | 2019-01-05 12:19 | Infectious Diseases Prog Note ---
Assessment/Plan Assessment/Plan antibiotics : ceftriaxone A 1. UTI 2. renal failure improving 3. hypertension P 1. continue ceftriaxone 2. will follow up cultures Subjective Constitutional: Denies: fever, chills Respiratory: Denies: shortness of breath, dry cough Gastrointestinal/Abdominal: Denies: nausea, vomiting, diarrhea Musculoskeletal: Denies: pain Allergies: Coded Allergies: No Known Allergies (Unverified , 01/03/19) Objective Vital Signs Last 24 Hour Vital Signs Date Time Temp Pulse Resp B/P (MAP) Pulse Ox O2 Delivery O2 Flow Rate FiO2 01/05/19 08:00 97.5 70 17 118/67 (84) 100 01/05/19 04:00 97.2 53 18 112/63 (79) 100 01/05/19 00:00 97.9 54 16 95/61 (72) 99 01/04/19 21:00 Room Air 01/04/19 20:00 97.8 91 20 128/85 (99) 96 01/04/19 16:00 97.7 77 20 115/74 (88) 97 Height (Feet): 5 Height (Inches): 6.00 Weight (Pounds): 157 Respiratory/Chest: lungs clear Cardiovascular: normal rate, regular rhythm, no gallop/murmur Abdomen: soft, non tender Extremities: no edema Microbiology Date/Time Source Procedure Growth Status 01/03/19 13:00 Nasal Nares MRSA Culture - Final NO METHICILLIN RESISTANT STAPH AUREUS... Complete 01/03/19 09:10 Urine,Clean Catch Urine Culture - Preliminary NO GROWTH AFTER 24 HOURS Resulted 01/03/19 13:00 Rectum VRE Culture - Final NO VANCOMYCIN RESISTANT ENTEROCOCCUS ... Complete 01/03/19 13:00 Rectum Received Laboratory Tests Test 01/05/19 05:20 White Blood Count 5.7 K/UL (4.8-10.8) Red Blood Count 4.14 M/UL (4.70-6.10) L Hemoglobin 12.1 G/DL (14.2-18.0) L Hematocrit 34.8 % (42.0-52.0) L Mean Corpuscular Volume 84 FL (80-99) Mean Corpuscular Hemoglobin 29.1 PG (27.0-31.0) Mean Corpuscular Hemoglobin Concent 34.6 G/DL (32.0-36.0) Red Cell Distribution Width 11.5 % (11.6-14.8) L Platelet Count 146 K/UL (150-450) L Mean Platelet Volume 9.6 FL (6.5-10.1) Neutrophils (%) (Auto) 56.3 % (45.0-75.0) Lymphocytes (%) (Auto) 32.7 % (20.0-45.0) Monocytes (%) (Auto) 9.1 % (1.0-10.0) Eosinophils (%) (Auto) 1.0 % (0.0-3.0) Basophils (%) (Auto) 1.0 % (0.0-2.0) Sodium Level 139 MMOL/L (136-145) Potassium Level 3.1 MMOL/L (3.5-5.1) L Chloride Level 100 MMOL/L (98-107) Carbon Dioxide Level 33 MMOL/L (21-32) H Anion Gap 6 mmol/L (5-15) Blood Urea Nitrogen 7 mg/dL (7-18) Creatinine 0.9 MG/DL (0.55-1.30) Estimat Glomerular Filtration Rate > 60 mL/min (>60) Glucose Level 98 MG/DL (74-106) Calcium Level 8.7 MG/DL (8.5-10.1) Current Medications Medications (Trade) Dose Ordered Sig/Adina Route PRN Reason Start Time Stop Time Status Last Admin Dose Admin Acetaminophen (Tylenol) 650 mg Q4H PRN ORAL Mild Pain (Pain Scale 1-3) 01/03/19 14:26 02/02/19 14:25 Ceftriaxone Sodium 1 gm/ Dextrose 55 ml @ 110 mls/hr Q24H IVPB 01/04/19 16:00 01/11/19 15:59 01/04/19 18:01 Dextrose (Dextrose 50%) 25 ml Q30M PRN IV Hypoglycemia 01/03/19 14:27 02/02/19 14:26 Dextrose (Dextrose 50%) 50 ml Q30M PRN IV Hypoglycemia 01/03/19 14:27 02/02/19 14:26 Dextrose/ Electrolytes 1,000 ml @ 100 mls/hr Q10H IV 01/03/19 16:00 02/02/19 15:59 01/05/19 08:14 Fluoxetine HCl (PROzac) 40 mg DAILY ORAL 01/05/19 09:00 02/04/19 08:59 01/05/19 08:14 Ondansetron HCl (Zofran) 4 mg Q4H PRN IVP Nausea & Vomiting 01/03/19 14:27 02/02/19 14:26 01/05/19 00:23 Polyethylene Glycol (Miralax) 17 gm HSPRN PRN ORAL Constipation 01/03/19 21:00 02/02/19 20:59 Tamsulosin HCl (Flomax) 0.4 mg BEDTIME ORAL 01/03/19 21:00 02/02/19 20:59 01/04/19 20:23 Temazepam (Restoril) 15 mg HSPRN PRN ORAL Insomnia 01/03/19 21:00 01/10/19 20:59 Ziprasidone (Geodon) 40 mg BID ORAL 01/03/19 18:00 02/02/19 17:59 01/05/19 08:14 Trice Petty MD Jan 05, 2019 12:19
--- NOTE | 2019-01-05 12:46 | Cardiology Report ---
APPROVED REPORT EKG Measurement Heart [id number] [id number] Sinus tachycardia Possible Left atrial enlargement Junctional ST depression, probably normal Borderline ECG
--- NOTE | 2019-01-05 13:18 | General Progress Note ---
Assessment/Plan Problem List: (1) ARF (acute renal failure) ICD Codes: N17.9 - Acute kidney failure, unspecified SNOMED: 03574642 (2) UTI (urinary tract infection) ICD Codes: N39.0 - Urinary tract infection, site not specified SNOMED: 10493320 (3) Vomiting ICD Codes: R11.10 - Vomiting, unspecified SNOMED: 003788455 Assessment/Plan abxs replete K Discussed with RN follow labs Advance diet Subjective Allergies: Coded Allergies: No Known Allergies (Unverified , 01/03/19) Subjective feels ok Objective Last 24 Hour Vital Signs Date Time Temp Pulse Resp B/P (MAP) Pulse Ox O2 Delivery O2 Flow Rate FiO2 01/05/19 08:00 97.5 70 17 118/67 (84) 100 01/05/19 04:00 97.2 53 18 112/63 (79) 100 01/05/19 00:00 97.9 54 16 95/61 (72) 99 01/04/19 21:00 Room Air 01/04/19 20:00 97.8 91 20 128/85 (99) 96 01/04/19 16:00 97.7 77 20 115/74 (88) 97 Intake and Output 01/04/19 01/05/19 19:00 07:00 Intake Total 1357.5 ml 1500 ml Output Total 350 ml Balance 1357.5 ml 1150 ml Intake Oral 720 ml 500 ml IV Total 637.5 ml 1000 ml Output Urine Total 350 ml # Bowel Movements 3 Laboratory Tests 01/05/19 05:20: White Blood Count 5.7, Red Blood Count 4.14L, Hemoglobin 12.1L, Hematocrit 34.8L , Mean Corpuscular Volume 84, Mean Corpuscular Hemoglobin 29.1, Mean Corpuscular Hemoglobin Concent 34.6, Red Cell Distribution Width 11.5L, Platelet Count 146L, Mean Platelet Volume 9.6, Neutrophils (%) (Auto) 56.3, Lymphocytes (%) (Auto) 32.7, Monocytes (%) (Auto) 9.1, Eosinophils (%) (Auto) 1.0, Basophils (%) (Auto) 1.0, Sodium Level 139, Potassium Level 3.1L, Chloride Level 100, Carbon Dioxide Level 33H, Anion Gap 6, Blood Urea Nitrogen 7, Creatinine 0.9, Estimat Glomerular Filtration Rate > 60, Glucose Level 98, Calcium Level 8.7 Height (Feet): 5 Height (Inches): 6.00 Weight (Pounds): 157 Cardiovascular: normal rate Respiratory/Chest: lungs clear Ugo Ferguson MD Jan 05, 2019 13:18
--- NOTE | 2019-01-05 13:50 | NUR ---
NURSE NOTES: Call [facility] and spoke to Jerome that patient will go back to [facility] today.
[2019-01-05 16:00] VITALS: BP 111/69
--- NOTE | 2019-01-05 16:35 | NUR ---
NURSE NOTES: Spoke to regarding discharge with new order - 1. Discharge patient if cleared by Psy and review discharge medication with . Order read back carried out.
[2019-01-05] MEDS: cefTRIAXone 1 GM in D5W 55 ML IVPB SCH (16:50)
--- NOTE | 2019-01-05 17:10 | NUR ---
NURSE NOTES: Spoke to regarding discharge with new order - 1. Patient cleared to discharge Psy standpoint. Order read back and carried out. Discharge medication review with .
[2019-01-05 19:30] VITALS: BP 108/64
--- NOTE | 2019-01-05 19:30 | NUR ---
HAND-OFF: Report given to Kalpana SALINAS. Patient in stable condition.
--- NOTE | 2019-01-05 20:17 | NUR ---
NURSE NOTES: Patient discharged with belongings. Left via private taxi. Transported via wheelchair by [employer]ENT [employer]. In stable condition.
--- NOTE | 2019-01-05 23:33 | General Progress Note ---
Assessment/Plan Problem List: (1) MDD (major depressive disorder) ICD Codes: F32.9 - Major depressive disorder, single episode, unspecified SNOMED: 253040838 (2) Anxiety disorder ICD Codes: F41.9 - Anxiety disorder, unspecified SNOMED: 205188605 Assessment/Plan prozac 40mg abilify provided ro/st the pt is not at imminent dts Subjective Neurologic/Psychiatric: Reports: anxiety, depressed, emotional problems Allergies: Coded Allergies: No Known Allergies (Unverified , 01/03/19) Objective Last 24 Hour Vital Signs Date Time Temp Pulse Resp B/P (MAP) Pulse Ox O2 Delivery O2 Flow Rate FiO2 01/05/19 19:30 Room Air 01/05/19 19:30 98.4 68 19 108/64 (79) 99 01/05/19 16:00 98.0 71 19 111/69 (83) 100 01/05/19 12:00 98.0 61 18 99/54 (69) 100 01/05/19 08:00 97.5 70 17 118/67 (84) 100 01/05/19 04:00 97.2 53 18 112/63 (79) 100 01/05/19 00:00 97.9 54 16 95/61 (72) 99 Intake and Output 01/04/19 01/05/19 18:59 06:59 Intake Total 1385.0 ml 1500 ml Output Total 350 ml Balance 1385.0 ml 1150 ml Intake Oral 720 ml 500 ml IV Total 665.0 ml 1000 ml Output Urine Total 350 ml # Bowel Movements 3 Laboratory Tests 01/05/19 05:20: White Blood Count 5.7, Red Blood Count 4.14L, Hemoglobin 12.1L, Hematocrit 34.8L , Mean Corpuscular Volume 84, Mean Corpuscular Hemoglobin 29.1, Mean Corpuscular Hemoglobin Concent 34.6, Red Cell Distribution Width 11.5L, Platelet Count 146L, Mean Platelet Volume 9.6, Neutrophils (%) (Auto) 56.3, Lymphocytes (%) (Auto) 32.7, Monocytes (%) (Auto) 9.1, Eosinophils (%) (Auto) 1.0, Basophils (%) (Auto) 1.0, Sodium Level 139, Potassium Level 3.1L, Chloride Level 100, Carbon Dioxide Level 33H, Anion Gap 6, Blood Urea Nitrogen 7, Creatinine 0.9, Estimat Glomerular Filtration Rate > 60, Glucose Level 98, Calcium Level 8.7 Height (Feet): 5 Height (Inches): 6.00 Weight (Pounds): 157 General Appearance: WD/WN, no apparent distress, alert Flor Villegas MD Jan 05, 2019 23:33
--- NOTE | 2019-01-07 09:05 | Discharge Summary ---
Discharge Summary Discharge Summary _ DATE OF ADMISSION: 01/03/2019 DATE OF DISCHARGE: 01/05/2019 DISCHARGED BY: Dr. Ferguson REASON FOR ADMISSION: 33 years old male ,resident of [facility], with past medical history of psychiatric disease and depression, was sent for evaluation due to vomiting episodes. Upon evaluation vital signs revealed tachycardia tachypnea. Laboratory workup revealed leukocytosis . Stable hemoglobin and hematocrit. Potassium 3.0. BUN 25, creatinine 2.3. Troponin negative. Urine toxicology screen was negative. Urinalysis revealed evidence of probable UTI. Chest x-ray revealed no acute cardiopulmonary pathology. CT of the abdomen and pelvis demonstrated small hiatal hernia , right testicle likely within the right inguinal canal , status post cholecystectomy, No acute findings otehrwise. Patient also had urinary retention. Lott catheter was inserted. Patient was admitted for further management. CONSULTANTS: ID specialist Dr. Lee psychiatrist [facility] COURSE: Patient admitted to medical surgical floor. Patient started on the IV hydration with addition of potassium. Patient started on empiric antibiotics. ID specialist closely followed. Patient started on liquid diet. Symptomatic treatment with antiemetic provided as needed. Patient started on Flomax for urinary retention. Patient was on antibiotic as per ID specialist recommendation. Urine culture was negative. Leukocytosis resolved. Renal parameters and electrolytes were closely monitored. Electrolytes corrected as needed, and nephrotoxins were avoided. Prior to discharge BUN from 25 down to 7 and creatinine from 2.3 down to 0.9. Acute renal failure resolved, was likely due to dehydration. PSA within normal limits. Patient pulled out Lott catheter. Flomax continued. Patient was able to void without difficulties. LFTs stable. Hemoglobin A1c 5.3. Diet was advanced. Patient was able to tolerate diet. Psychiatrist followed. Psychiatrist diagnosed patient with major depressive disorder and anxiety disorder. Reality orientation and supportive therapy provided. Psychiatric medication regimen provided as per psychiatrist recommendation. Per psychiatrist, patient was not of imminent danger to self. Patient clinically stabilized and was ready for transfer to [facility] for continuation of care FINAL DIAGNOSES: Acute renal failure , likely due to dehydration -resolved Hypokalemia Urinary tract infection Vomiting Major depressive disorder Anxiety disorder DISCHARGE MEDICATIONS: See Medication Reconciliation list. DISCHARGE INSTRUCTIONS: Patient was discharged to [facility]. Follow-up with primary care provider in 1 week I have been assigned to dictate discharge summary for this account. I was not involved in the patient's management. Ebonie Salazar NP Jan 07, 2019 09:05
== END 2019-01-05 20:00 | disposition home or self-care (01) | DRG 469 ==
LOC: EMR 09:55 → 3E 12:00 → EDBEDREQ 12:37
DX: N17.9 Acute kidney failure, unspecified (principal); E87.3 Alkalosis; E87.6 Hypokalemia; E86.0 Dehydration; K29.00 Acute gastritis without bleeding; N39.0 Urinary tract infection, site not specified; K52.9 Noninfective gastroenteritis and colitis, unspecified; R11.2 Nausea with vomiting, unspecified; F32.9 Major depressive disorder, single episode, unspecified; F41.9 Anxiety disorder, unspecified; R33.9 Retention of urine, unspecified; I10 Essential (primary) hypertension; K44.9 Diaphragmatic hernia without obstruction or gangrene; F99 Mental disorder, not otherwise specified; Z90.49 Acquired absence of other specified parts of digestive tract
CPT/HCPCS: 36415; 71045; 74176; 80048; 80053; 80307; 81003; 82248; 82550; 82553; 82962; 83036; 83735; 84153; 84484; 85025; 85610; 85730; 87081; 87086; 93005; 96361; 96365; 96375; 99285; J2405; J2765; J8499

== ENCOUNTER 2019-01-16 09:04 | Emergency (ER) | payer OTHER ==
[~2019-01-16] VITALS: Ht 167.6 cm; Wt 68.0 kg
[~2019-01-16 09:04] MED LIST: ABILIFY20 MG ORAL; DIPHENHYDRAMINE25 M1 ORAL; FLUOXETINE HCL20 M2 ORAL; LATUDA40 MG PO
[2019-01-16 09:20] VITALS: BP 120/76
--- NOTE | 2019-01-16 09:20 | NUR ---
ED Nurse Note: [facility] with his caregiver came in due to pain his throat and left side abd pain x 2-3 days. Per CG, pt is inducing himself to vomit everyday. Pt is AAO x4, ambulatory with non labored breathing. Speaks in full sentences. VSS.
[2019-01-16] MEDS ORDERED: Barium EZ HD MC PRN (09:45)
[2019-01-16] MEDS ORDERED: Mylanta II UD 30ml ORAL ONE (09:45)
[2019-01-16] MEDS ORDERED: Barium EZ Gas II granules MC PRN (09:45)
[2019-01-16] MEDS ORDERED: Lidocaine 2% Visc 15ml soln ORAL ONE (09:45)
[2019-01-16] MEDS ORDERED: Varibar Thin Liquid powder 148gm MC PRN (09:45)
--- NOTE | 2019-01-16 09:50 | NUR ---
ED Nurse Note: Radiologist at the bed side for xray of esophagus.
--- NOTE | 2019-01-16 10:03 | NUR ---
ED Nurse Note: Blood and urine collected and sent.
[2019-01-16 10:09] LABS: EOSINOPHILS % (AUTO) 0.6 % (0.0-3.0); HEMOGLOBIN 14.9 G/DL (14.2-18.0); LYMPHOCYTES % (AUTO) 22.7 % (20.0-45.0); MEAN CORPUSCULAR VOLUME 85 FL (80-99); MONOCYTES % (AUTO) 7.1 % (1.0-10.0); NEUTROPHILS % (AUTO) 68.6 % (45.0-75.0); PLATELET COUNT 224 K/UL (150-450); RED BLOOD COUNT 5.16 M/UL (4.70-6.10); RED CELL DISTRIBUTION WIDTH 11.5 % (11.6-14.8); WHITE BLOOD COUNT 6.3 K/UL (4.8-10.8)
[2019-01-16 10:19] LABS: INR 1.1 (0.9-1.1)
[2019-01-16 10:20] LABS: APPEARANCE,URINE CLEAR; BILIRUBIN, URINE NEGATIVE (NEGATIVE); GLUCOSE, URINE (UA) NEGATIVE (NEGATIVE); KETONES,URINE 4+ (NEGATIVE); LEUKOCYTE ESTERASE ,URINE 1+ (NEGATIVE); NITRITE,URINE NEGATIVE (NEGATIVE); PH,URINE 8 (4.5-8.0); PROTEIN,URINE 2+ (NEGATIVE); UROBILINOGEN,URINE 4 MG/DL (0.0-1.0)
[2019-01-16 10:24] LABS: COLOR,URINE YELLOW
--- NOTE | 2019-01-16 10:25 | Emergency Room Report ---
History of Present Illness General Chief Complaint: Pain Source: Patient, Medical Record Present Illness HPI The patient was admitted patient presents with 2 weeks of throat pain. He's been self inducing vomiting. He states he does this because he has pain in his esophagus and also in his stomach when he eats. He is requesting to have a camera to look down into his throat. Denies any vomiting of blood. He points to the lower part of his throat as to where the significant pain is. He's not taking any medication for this. He also complains that he is passing bright red blood per rectum. He states he has hemorrhoids. It's more on the toilet paper. Pain is rated 6/10, constant nonradiating and aching. The patient has a history of schizophrenia. He is here with a plastic surgery manager. She doesn't know much about his previous history. In December and discharged January 05 of this year. Discharge diagnoses: Acute renal failure , likely due to dehydration -resolved Hypokalemia Urinary tract infection Vomiting Major depressive disorder Anxiety disorder Allergies: Coded Allergies: No Known Allergies (Unverified , 01/03/19) Patient History Past Medical History: see triage record Social History: Denies: smoking, alcohol use, drug use Social History Narrative Psychiatric [id number] Reviewed Nursing Documentation: PMH: Agreed; PSxH: Agreed Nursing Documentation-PMH Past Medical History: No History, Except For Hx Cardiac Problems: No Hx Hypertension: No Hx Pacemaker: No Hx Asthma: No Hx COPD: No Hx Diabetes: No Hx Cancer: No Hx Gastrointestinal Problems: No Hx Dialysis: No History Of Psychiatric Problem: Yes - Depression, psychosis Hx Neurological Problems: No Hx Cerebrovascular Accident: No Hx Seizures: No Hx Dizziness: Yes Hx Syncope: Yes Review of Systems All Other Systems: negative except mentioned in HPI Physical Exam Vital Signs Date Time Temp Pulse Resp B/P (MAP) Pulse Ox O2 Delivery O2 Flow Rate FiO2 01/16/19 09:10 98.2 68 14 112/75 95 Room Air Sp02 EP Interpretation: reviewed, normal General Appearance: well appearing, no apparent distress, GCS 15 Head: normocephalic Eyes: bilateral eye normal inspection, bilateral eye PERRL ENT: moist mucus membranes Neck: supple Respiratory: lungs clear, normal breath sounds Cardiovascular #1: regular rate, rhythm Cardiovascular #2: 2+ radial (R) Gastrointestinal: normal inspection, normal bowel sounds, non tender, no mass, non-distended Musculoskeletal: back normal, gait/station normal, normal range of motion Neurologic: alert, oriented x3, grossly normal Psychiatric: other - flat affect Skin: normal inspection, warm/dry Medical Decision Making Diagnostic Impression: 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 Differential includes esophageal tear, Mariel-Butler tear, Boerhaave's syndrome, esophagitis , gastritis, dehydration and electrolyte imbalance amongst others. Evaluation will be with EKG, chest x-ray, barium swallow and labs. The patient will be treated with antiemetics and Pepcid. Labs with normal white count. CMP with low potassium. Barium swallow without lesions. Potassium is replaced IV and orally. Patient states the pain is better with treatment. Discussed the need for outpatient reevaluation and medication cautions. This was discussed with the plastic surgery manager also. Patient stable for outpatient observation and treatment. Laboratory Tests Test 01/16/19 09:45 01/16/19 10:00 White Blood Count 6.3 K/UL (4.8-10.8) Red Blood Count 5.16 M/UL (4.70-6.10) Hemoglobin 14.9 G/DL (14.2-18.0) Hematocrit 44.0 % (42.0-52.0) Mean Corpuscular Volume 85 FL (80-99) Mean Corpuscular Hemoglobin 28.8 PG (27.0-31.0) Mean Corpuscular Hemoglobin Concent 33.8 G/DL (32.0-36.0) Red Cell Distribution Width 11.5 % (11.6-14.8) L Platelet Count 224 K/UL (150-450) Mean Platelet Volume 7.9 FL (6.5-10.1) Neutrophils (%) (Auto) 68.6 % (45.0-75.0) Lymphocytes (%) (Auto) 22.7 % (20.0-45.0) Monocytes (%) (Auto) 7.1 % (1.0-10.0) Eosinophils (%) (Auto) 0.6 % (0.0-3.0) Basophils (%) (Auto) 1.0 % (0.0-2.0) Prothrombin Time 11.3 SEC (9.30-11.50) Prothrombin Time INR 1.1 (0.9-1.1) PTT 27 SEC (23-33) Sodium Level 138 MMOL/L (136-145) Potassium Level 2.9 MMOL/L (3.5-5.1) L Chloride Level 97 MMOL/L (98-107) L Carbon Dioxide Level 33 MMOL/L (21-32) H Anion Gap 8 mmol/L (5-15) Blood Urea Nitrogen 12 mg/dL (7-18) Creatinine 1.0 MG/DL (0.55-1.30) Estimate Glomerular Filtration Rate > 60 mL/min (>60) Glucose Level 89 MG/DL (74-106) Calcium Level 9.8 MG/DL (8.5-10.1) Total Bilirubin 0.8 MG/DL (0.2-1.0) Aspartate Amino Transferase (AST) 20 U/L (15-37) Alanine Aminotransferase (ALT) 25 U/L (12-78) Alkaline Phosphatase 86 U/L (46-116) Total Creatine Kinase 114 U/L (26-308) Total Protein 8.6 G/DL (6.4-8.2) H Albumin 4.3 G/DL (3.4-5.0) Globulin 4.3 g/dL Albumin/Globulin Ratio 1.0 (1.0-2.7) Lipase 109 U/L (73-393) Urine Color Yellow Urine Appearance Clear Urine pH 8 (4.5-8.0) Urine Specific [place] 1.010 (1.005-1.035) Urine Protein 2+ (NEGATIVE) H Urine Glucose (UA) Negative (NEGATIVE) Urine Ketones 4+ (NEGATIVE) H Urine Blood Negative (NEGATIVE) Urine Nitrite Negative (NEGATIVE) Urine Bilirubin Negative (NEGATIVE) Urine Urobilinogen 4 MG/DL (0.0-1.0) H Urine Leukocyte Esterase 1+ (NEGATIVE) H Urine RBC 0-2 /HPF (0 - 0) H Urine WBC 2-4 /HPF (0 - 0) Urine Squamous Epithelial Cells Occasional /LPF Urine Bacteria Occasional /HPF (NONE) Urine Mucus Moderate /LPF (NONE/OCC) H EKG Diagnostic Results Rate: normal Rhythm: NSR ST Segments: no acute changes Rhythm Strip Diag. Results EP Interpretation: yes Rhythm: NSR, no PVC's, no ectopy Chest X-Ray Diagnostic Results Chest X-Ray Diagnostic Results : Chest X-Ray Ordered: Yes Indication: Other EP Interpretation: Yes Interpretation: no consolidation, no effusion, no pneumothorax Impression: No acute disease Electronically Signed by: Electronically signed by Seb Dos Santos MD Other X-Ray Diagnostic Results Other X-Ray Diagnostic Results : X-Ray ordered: barium swallow # of Views/Limited Vs Complete: Complete EP Interpretation: Yes Impression: No acute disease Electronically Signed by: Electronically signed by Seb Dos Santos MD Last Vital Signs Date Time Temp Pulse Resp B/P (MAP) Pulse Ox O2 Delivery O2 Flow Rate FiO2 01/16/19 14:55 97.9 70 17 115/59 100 Room Air Status: improved Disposition: ASSISTED LIVING Condition: Improved Scripts Potassium Chloride* (K-DUR*) 10 Meq Capsule.er 10 MEQ ORAL DAILY, #14 TAB 0 Refills Prov: Seb Dos Santos MD 01/16/19 Mag Hydrox/Al Hydrox/Simeth (MAALOX MAXIMUM STRENGTH SUSP) 355 Ml Oral.susp 30 ML PO Q6HR, #240 ML Prov: Seb Dos Santos MD 01/16/19 Famotidine (PEPCID AC) 20 Mg Tablet 20 MG PO DAILY, #30 TAB Prov: Seb Dos Santos MD 01/16/19 Ondansetron Odt* (ZOFRAN ODT*) 4 Mg Tab.rapdis 4 MG BC EVERY 8 HOURS, #10 TAB 1 Refill Prov: Seb Dos Santos MD 01/16/19 Referrals: NON PHYSICIAN (PCP) Seb Dos Santos MD Jan 16, 2019 10:25
[2019-01-16 10:28] LABS: ANION GAP 8 mmol/L (5-15); BLOOD UREA NITROGEN 12 mg/dL (7-18); CALCIUM 9.8 MG/DL (8.5-10.1); CARBON DIOXIDE 33 MMOL/L (21-32); CHLORIDE 97 MMOL/L (98-107); POTASSIUM 2.9 MMOL/L (3.5-5.1); SODIUM 138 MMOL/L (136-145)
[2019-01-16 10:34] LABS: ALANINE AMINOTRANSFERASE 25 U/L (12-78); ALBUMIN 4.3 G/DL (3.4-5.0); ALKALINE PHOSPHATASE 86 U/L (46-116); ASPARTATE AMINO TRANSFERASE 20 U/L (15-37); BILIRUBIN,TOTAL 0.8 MG/DL (0.2-1.0); CREATINE KINASE 114 U/L (26-308)
--- NOTE | 2019-01-16 11:01 | Diagnostic Imaging Report ---
Indication: Chest pain Technique: One view of the chest Comparison: 12/07/2017 Findings: Lungs and pleural spaces are clear. Heart size is normal. No significant interim change Impression: No acute process
[2019-01-16 11:30] VITALS: BP 125/87
[2019-01-16 13:37] VITALS: BP 103/59
[2019-01-16] MEDS ORDERED: ONDANSETRON ODT4 MG BC (13:47)
[2019-01-16] MEDS ORDERED: MAALOX MAXIMUM355 M1 PO (13:47)
[2019-01-16] MEDS ORDERED: POTASSIUM CHLO10 MEQ ORAL (13:47)
[2019-01-16] MEDS ORDERED: PEPCID AC20 M2 PO (13:47)
--- NOTE | 2019-01-16 14:37 | Diagnostic Imaging Report ---
Indication: Throat pain x3 weeks Technique: Patient ingested water-soluble contrast, and rapid sequence spot images obtained of the hypopharynx and esophagus in multiple projections. Total fluoroscopy time one minute. Total dose area product 44 dGycm2 Number of images: 20 Comparison: none Findings: Normal motility is demonstrated. No extravasation or leakage of contrast demonstrated. Normal esophageal motility Impression: Limited exam; negative for evidence of esophageal perforation
[2019-01-16 14:55] VITALS: BP 115/59
--- NOTE | 2019-01-16 14:55 | NUR ---
ER DISCHARGE NOTE: Patient is cleared to be discharged per ERMD, pt is aox4, on room air, with stable vital signs. pt/caregiver was given dc and prescription instructions, pt/caregiver was able to verbalize understanding, pt id band and iv site removed without complications. pt is able to ambulate with steady gait. pt took all belongings and left with his primary caregiver.
== END 2019-01-16 14:55 | disposition home or self-care (01) ==
LOC: EMR 09:29
DX: F50.89 Other specified eating disorder (principal); R07.0 Pain in throat; E87.6 Hypokalemia; F25.9 Schizoaffective disorder, unspecified; F32.9 Major depressive disorder, single episode, unspecified
CPT/HCPCS: 36415; 71045; 74220; 80053; 81003; 82550; 83690; 85025; 85610; 85730; 93005; 96361; 96365; 96375; 99284; J2405; J3480; S0028; J8499

== ENCOUNTER 2019-02-07 11:50 | Emergency (ER) | payer OTHER ==
[~2019-02-07] VITALS: Ht 165.1 cm; Wt 68.0 kg
[~2019-02-07 11:50] MED LIST changes: +MAALOX MAXIMUM355 M1 PO; +ONDANSETRON ODT4 MG BC; +PEPCID AC20 M2 PO; +POTASSIUM CHLO10 MEQ ORAL
[2019-02-07 12:13] VITALS: BP 110/74
[2019-02-07 13:12] LABS: BASOPHILS % (AUTO) 0.9 % (0.0-2.0); EOSINOPHILS % (AUTO) 0.7 % (0.0-3.0); HEMATOCRIT 45.2 % (42.0-52.0); HEMOGLOBIN 15.4 G/DL (14.2-18.0); LYMPHOCYTES % (AUTO) 27.6 % (20.0-45.0); MEAN CORPUSCULAR VOLUME 84 FL (80-99); MONOCYTES % (AUTO) 8.1 % (1.0-10.0); NEUTROPHILS % (AUTO) 62.7 % (45.0-75.0); PLATELET COUNT 171 K/UL (150-450); RED BLOOD COUNT 5.38 M/UL (4.70-6.10); RED CELL DISTRIBUTION WIDTH 11.1 % (11.6-14.8); WHITE BLOOD COUNT 5.6 K/UL (4.8-10.8)
[2019-02-07 13:17] LABS: APPEARANCE,URINE CLEAR; BILIRUBIN, URINE NEGATIVE (NEGATIVE); GLUCOSE, URINE (UA) NEGATIVE (NEGATIVE); KETONES,URINE 1+ (NEGATIVE); LEUKOCYTE ESTERASE ,URINE 2+ (NEGATIVE); NITRITE,URINE NEGATIVE (NEGATIVE); PH,URINE 8 (4.5-8.0); PROTEIN,URINE 2+ (NEGATIVE); UROBILINOGEN,URINE 1 MG/DL (0.0-1.0)
[2019-02-07 13:18] LABS: COLOR,URINE YELLOW
[2019-02-07 13:20] LABS: ANION GAP 5 mmol/L (5-15); BLOOD UREA NITROGEN 19 mg/dL (7-18); CALCIUM 9.7 MG/DL (8.5-10.1); CARBON DIOXIDE 37 MMOL/L (21-32); CHLORIDE 96 MMOL/L (98-107); CREATININE 1.2 MG/DL (0.55-1.30); POTASSIUM 3.3 MMOL/L (3.5-5.1); SODIUM 138 MMOL/L (136-145)
[2019-02-07 13:25] LABS: ALANINE AMINOTRANSFERASE 20 U/L (12-78); ALBUMIN 4.3 G/DL (3.4-5.0); ALBUMIN/GLOBULIN RATIO 1.1 (1.0-2.7); ALKALINE PHOSPHATASE 86 U/L (46-116); ASPARTATE AMINO TRANSFERASE 23 U/L (15-37); BILIRUBIN,TOTAL 0.7 MG/DL (0.2-1.0)
[2019-02-07 14:05] VITALS: BP 128/80
[2019-02-07] MEDS ORDERED: PEPCID AC20 M2 PO (14:10)
[2019-02-07] MEDS ORDERED: ZOFRAN4 M3 ORAL (14:10)
[2019-02-07] MEDS ORDERED: TYLENOL EXTRA500 MG ORAL (14:10)
--- NOTE | 2019-02-07 21:37 | Emergency Room Report ---
History of Present Illness General Chief Complaint: Abdominal Pain Source: Patient, Medical Record Present Illness HPI Patient is a 33-year-old male presenting for abdominal pain with vomiting on and off for the past 6 months. Pain is a 6 out of 10 dull ache to the left upper abdomen and does not radiate. Worse with vomiting. No known onset for the vomiting to occur. He denies other symptoms including fever, chills, diarrhea, constipation, hematemesis Allergies: Coded Allergies: No Known Allergies (Unverified , 01/03/19) Patient History Past Medical History: psych hx Pertinent Family History: none Reviewed Nursing Documentation: PMH: Agreed; PSxH: Agreed Nursing Documentation-PMH Hx Cardiac Problems: No Hx Hypertension: No Hx Pacemaker: No Hx Asthma: No Hx COPD: No Hx Diabetes: No Hx Cancer: No Hx Gastrointestinal Problems: No Hx Dialysis: No History Of Psychiatric Problem: Yes - Psychosis, Depression, Insomnia Hx Neurological Problems: No Hx Cerebrovascular Accident: No Hx Seizures: No Hx Dizziness: Yes Hx Syncope: Yes Review of Systems All Other Systems: negative except mentioned in HPI Physical Exam Vital Signs Date Time Temp Pulse Resp B/P (MAP) Pulse Ox O2 Delivery O2 Flow Rate FiO2 02/07/19 12:13 97.2 72 18 94 Room Air 02/07/19 12:13 110/74 Sp02 EP Interpretation: reviewed, normal General Appearance: no apparent distress, alert, GCS 15, non-toxic Head: normocephalic, atraumatic Eyes: bilateral eye normal inspection, bilateral eye PERRL Neck: full range of motion, supple/symm/no masses Respiratory: chest non-tender, lungs clear, normal breath sounds, speaking full sentences Cardiovascular #1: regular rate, rhythm, no edema Gastrointestinal: normal bowel sounds, soft, non-distended, no guarding, no rebound, tenderness - epigastric Musculoskeletal: back normal, gait/station normal, normal range of motion, non- tender Neurologic: alert, oriented x3, responsive, motor strength/tone normal, sensory intact, speech normal Psychiatric: judgement/insight normal, memory normal, mood/affect normal, no suicidal/homicidal ideation Medical Decision Making PA Attestation Dr. roman is my supervising physician. Patient management was discussed with my supervising physician Diagnostic Impression: Primary Impression: Vomiting Qualified Codes: R11.2 - Nausea with vomiting, unspecified ER Course Patient is a 33-year-old male presenting for abdominal pain with vomiting on and off for the past 6 month Differential diagnoses considered include but not limited to gastritis, pancreatitis, appendicitis, cholecystitis, among others PE: AFebrile. NAD TTP over the epigastric region only. Labs unremarkable. No leukocytosis Pt given Pepcid and Zofran and states symptoms have improved. Pt has not vomited during duration of visit Pt given prescription for pepcid and zofran. ER precautions given Laboratory Tests Test 02/07/19 12:30 White Blood Count 5.6 K/UL (4.8-10.8) Red Blood Count 5.38 M/UL (4.70-6.10) Hemoglobin 15.4 G/DL (14.2-18.0) Hematocrit 45.2 % (42.0-52.0) Mean Corpuscular Volume 84 FL (80-99) Mean Corpuscular Hemoglobin 28.6 PG (27.0-31.0) Mean Corpuscular Hemoglobin Concent 34.0 G/DL (32.0-36.0) Red Cell Distribution Width 11.1 % (11.6-14.8) L Platelet Count 171 K/UL (150-450) Mean Platelet Volume 9.1 FL (6.5-10.1) Neutrophils (%) (Auto) 62.7 % (45.0-75.0) Lymphocytes (%) (Auto) 27.6 % (20.0-45.0) Monocytes (%) (Auto) 8.1 % (1.0-10.0) Eosinophils (%) (Auto) 0.7 % (0.0-3.0) Basophils (%) (Auto) 0.9 % (0.0-2.0) Prothrombin Time 10.9 SEC (9.30-11.50) Prothrombin Time INR 1.0 (0.9-1.1) PTT 25 SEC (23-33) Urine Color Yellow Urine Appearance Clear Urine pH 8 (4.5-8.0) Urine Specific [place] 1.010 (1.005-1.035) Urine Protein 2+ (NEGATIVE) H Urine Glucose (UA) Negative (NEGATIVE) Urine Ketones 1+ (NEGATIVE) H Urine Blood Negative (NEGATIVE) Urine Nitrite Negative (NEGATIVE) Urine Bilirubin Negative (NEGATIVE) Urine Urobilinogen 1 MG/DL (0.0-1.0) H Urine Leukocyte Esterase 2+ (NEGATIVE) H Urine RBC 0 /HPF (0 - 0) Urine WBC 2-4 /HPF (0 - 0) Urine Squamous Epithelial Cells Occasional /LPF Urine Bacteria Occasional /HPF (NONE) Urine Mucus Many /LPF (NONE/OCC) H Sodium Level 138 MMOL/L (136-145) Potassium Level 3.3 MMOL/L (3.5-5.1) L Chloride Level 96 MMOL/L (98-107) L Carbon Dioxide Level 37 MMOL/L (21-32) H Anion Gap 5 mmol/L (5-15) Blood Urea Nitrogen 19 mg/dL (7-18) H Creatinine 1.2 MG/DL (0.55-1.30) Estimate Glomerular Filtration Rate > 60 mL/min (>60) Glucose Level 119 MG/DL (74-106) H Calcium Level 9.7 MG/DL (8.5-10.1) Total Bilirubin 0.7 MG/DL (0.2-1.0) Aspartate Amino Transferase (AST) 23 U/L (15-37) Alanine Aminotransferase (ALT) 20 U/L (12-78) Alkaline Phosphatase 86 U/L (46-116) Total Protein 8.3 G/DL (6.4-8.2) H Albumin 4.3 G/DL (3.4-5.0) Globulin 4.0 g/dL Albumin/Globulin Ratio 1.1 (1.0-2.7) Lipase 156 U/L (73-393) Urine Opiates Screen Negative (NEGATIVE) Urine Barbiturates Screen Negative (NEGATIVE) Phencyclidine (PCP) Screen Negative (NEGATIVE) Urine Amphetamines Screen Negative (NEGATIVE) Urine Benzodiazepines Screen Negative (NEGATIVE) Urine Cocaine Screen Negative (NEGATIVE) Urine Marijuana (THC) Screen Negative (NEGATIVE) Lab Results Impression Unremarkable Last Vital Signs Date Time Temp Pulse Resp B/P (MAP) Pulse Ox O2 Delivery O2 Flow Rate FiO2 02/07/19 14:05 80 14 128/80 100 Room Air 02/07/19 12:13 97.2 Status: improved Disposition: HOME, SELF-CARE Condition: Improved Scripts Famotidine (PEPCID AC) 20 Mg Tablet 20 MG PO Q12HR, #15 TAB Prov: TERZIANCUATE P.A. 02/07/19 Acetaminophen* (TYLENOL EXTRA STRENGTH*) 500 Mg Tablet 500 MG ORAL Q8H PRN for Prn Headache/Temp > 101, #30 TAB 0 Refills Prov: CUATE BELLA 02/07/19 Ondansetron* (ZOFRAN*) 4 Mg Tablet 4 MG ORAL Q6H PRN for Nausea & Vomiting, #15 TAB Prov: CUATE BELLA 02/07/19 Referrals: [facility] [place] [facility],REF[facility] (PCP) Patient Instructions: Rehydration, Adult, Abdominal Pain, Adult Additional Instructions: I discussed my findings with the patient. All questions and concerns have been answered. Treatment and medication compliance have been addressed. I advised the patient that they need to follow up with PMD in 3-5 days. Return to ED if symptoms worsen, new symptoms arise, or if needed for any reason. Patient verbalized understanding of discharge instructions. CUATE BELLA February 07, 2019 21:37
== END 2019-02-07 14:20 | disposition home or self-care (01) ==
LOC: EMR 12:47
DX: R11.2 Nausea with vomiting, unspecified (principal)
CPT/HCPCS: 36415; 80053; 80307; 81003; 83690; 85025; 85610; 85730; 96374; 96375; 99284; J2405; J7040; S0028; J8499